=== PATIENT | male | born 1940 | race Caucasian/White ===

== ENCOUNTER 2020-12-11 15:59 | Inpatient (IN) | payer BC, MEDICARE ==
[~2020-12-11] VITALS: Ht 172.7 cm; Wt 78.9 kg
[~2020-12-11 15:59] MED LIST: TAMS-11 PO
[2020-12-11] MEDS ORDERED: SODIUM CHLORIDE 0.9% 1,000 ML IV ONE (17:00)
[2020-12-11 17:12] LABS: HEMATOCRIT. 39.5 % (42.0-52.0); HEMOGLOBIN. 13.6 g/dL (14.0-18.0); MEAN CORPUSCULAR HEMOGLOBIN 29.7 pg (28.0-32.0); MEAN CORPUSCULAR VOLUME 86.2 fL (80.0-94.0); MEAN PLATELET VOLUME 7.8 fl (7.4-10.4); PLATELET 171 x1000/uL (130-400); RED BLOOD CELL COUNT 4.58 mill/uL (4.7-6.1); RED CELL DISTRIBUTION WIDTH 13.4 % (11.6-14.6)
[2020-12-11 17:18] LABS: CHLORIDE 102 mEq/L (98-107)
[2020-12-11 17:22] LABS: INR 1.1
[2020-12-11 17:37] LABS: PLATELET ESTIMATE NORMAL
[2020-12-11] MEDS ORDERED: ASPIRIN 325MG EC TABLET PO NR (18:00)
[2020-12-11] MEDS ORDERED: SODIUM CHLORIDE 0.9% 1000ML BAG (SEPSIS BOLUS) IV ONE (18:00)
[2020-12-11] MEDS ORDERED: POTASSIUM CHLORIDE 20MEQ TABLET SR PO NR (18:00)
[2020-12-11] MEDS ORDERED: KCL 10MEQ/50ML PREMIX 50 ML IV NR (18:00)
[2020-12-11] MEDS ORDERED: VANCOMYCIN 1 G PREMIX 200 ML IV NR (18:00)
[2020-12-11] MEDS ORDERED: PIPERACILLIN/TAZ 3.375G PREMIX 50 ML IV ONE (18:00)
[2020-12-11] MEDS ORDERED: SODIUM CHLORIDE 0.9% IV SCH (18:15)
[2020-12-11] MEDS ORDERED: PIPERACILLIN/TAZ 3.375G PREMIX 50 ML IV NR (18:15)
[2020-12-11] MEDS ORDERED: HEPARIN 25,000 UNITS PREMIX 250 ML IV ONE (18:30)
[2020-12-11] MEDS ORDERED: MAGNESIUM 1 G PREMIX 100 ML IV NR (18:30)
[2020-12-11] MEDS ORDERED: HEPARIN 5000 UNITS/ML VIAL IV PRN ×2 (19:00)
[2020-12-11] MEDS ORDERED: HEPARIN 5000 UNITS/ML VIAL IV SCH ×2 (19:00→19:30)
[2020-12-11] MEDS ORDERED: HEPARIN 25,000 UNITS PREMIX 250 ML IV PRN (19:00)
[2020-12-11 20:16] LABS: CLARITY URINE CLEAR (CLEAR); COLOR URINE YELLOW (YELLOW); KETONES URINE NEGATIVE (NEGATIVE); LEUKOCYTE ESTERASE URINE TRACE (NEGATIVE); NITRITE URINE POSITIVE (NEGATIVE); OCCULT BLOOD URINE 1+ (NEGATIVE); PH URINE 6.5 (4.5-8.0); PROTEIN URINE NEGATIVE (NEGATIVE); SPECIFIC GRAVITY URINE 1.008 (1.005-1.030); UROBILINOGEN URINE 0.2 E.U./dL (0.2-1.0)
[2020-12-11 22:56] VITALS: BP 117/57
[2020-12-12] VITALS (14 sets, daily range): BP systolic 85–134; BP diastolic 44–73
[2020-12-12] MEDS ORDERED: HYDROCODONE/ACETAMINOPHEN 5/325MG TABLET PO PRN
[2020-12-12] MEDS: TAMSULOSIN HCL 0.4MG SR CAPSULE PO SCH ×2 (00:02→20:19)
[2020-12-12] MEDS ORDERED: PNEUMOCOCCAL 23-VAL P-SAC VAC 0.5 ML IM ONE (08:15)
[2020-12-12] MEDS ORDERED: INFLUENZA VACCINE 05/PF 0.5 ML SYRINGE IM ONE (08:15)
[2020-12-12] MEDS: ENOXAPARIN 40MG/0.4ML SYR SUBCUT SCH (08:52)
[2020-12-12] MEDS: ASPIRIN 81MG TABLET PO SCH (08:52)
[2020-12-12] MEDS ORDERED: ISOSORBIDE MONONITRATE 30MG TABLET SR 24HR PO SCH (09:00)
[2020-12-12] MEDS ORDERED: METOPROLOL TARTRATE 25MG TABLET PO SCH (09:00)
[2020-12-12 09:14] LABS: HEMATOCRIT. 36.8 % (42.0-52.0); HEMOGLOBIN. 12.5 g/dL (14.0-18.0); MEAN CORPUSCULAR HEMOGLOBIN 29.4 pg (28.0-32.0); MEAN CORPUSCULAR VOLUME 86.5 fL (80.0-94.0); MEAN PLATELET VOLUME 8.1 fl (7.4-10.4); PLATELET 171 x1000/uL (130-400); RED BLOOD CELL COUNT 4.26 mill/uL (4.7-6.1)
[2020-12-12] MEDS ORDERED: CEFTRIAXONE 1 G PREMIX 50 ML IV SCH (10:00)
[2020-12-12] MEDS ORDERED: POTASSIUM CHLORIDE 20MEQ TABLET SR PO NR (10:00)
[2020-12-12 11:37] LABS: PLATELET ESTIMATE NORMAL
[2020-12-12] MEDS ORDERED: SODIUM CHLORIDE 0.9% 250 ML IV NR (12:00)
[2020-12-12] MEDS ORDERED: MAGNESIUM 2 G PREMIX 50 ML IV NR (12:00)
[2020-12-12] MEDS: CEFTRIAXONE 1,000 MG in DEXTROSE 5% WATER 50 ML IV SCH (12:22)
[2020-12-12] MEDS ORDERED: ASPI-1497 MT (18:23)
[2020-12-12] MEDS ORDERED: CHLO25TA2 PO (18:23)
[2020-12-12] MEDS ORDERED: AMLO10TA80 MT (18:23)
[2020-12-12] MEDS ORDERED: ATOR-2 MT (18:23)
[2020-12-12] MEDS ORDERED: FINASTERIDE 5MG TABLET PO SCH (21:00)
[2020-12-12] MEDS ORDERED: TAMSULOSIN HCL 0.4MG SR CAPSULE PO SCH (21:00)
[2020-12-13] VITALS (9 sets, daily range): BP systolic 83–127; BP diastolic 47–78
[2020-12-13 08:12] LABS: BASOPHILS % 0.5 % (0.0-2.0); CHLORIDE 107 mEq/L (98-107); EOSINOPHILS % 1.2 % (0.0-5.0); HEMATOCRIT. 36.9 % (42.0-52.0); HEMOGLOBIN. 12.5 g/dL (14.0-18.0); LYMPHOCYTES % 8.9 % (20.0-50.0); MEAN CORPUSCULAR HEMOGLOBIN 29.4 pg (28.0-32.0); MEAN CORPUSCULAR VOLUME 86.9 fL (80.0-94.0); MEAN PLATELET VOLUME 8.4 fl (7.4-10.4); MONOCYTES % 4.9 % (2.0-8.0); NEUTROPHILS % 84.5 % (40.0-76.0); PLATELET 161 x1000/uL (130-400); RED BLOOD CELL COUNT 4.24 mill/uL (4.7-6.1); RED CELL DISTRIBUTION WIDTH 13.9 % (11.6-14.6)
[2020-12-13] MEDS: ENOXAPARIN 40MG/0.4ML SYR SUBCUT SCH (09:11)
[2020-12-13] MEDS: ASPIRIN 81MG TABLET PO SCH (09:11)
[2020-12-13] MEDS: CEFTRIAXONE 1,000 MG in DEXTROSE 5% WATER 50 ML IV SCH (12:23)
[2020-12-13] MEDS ORDERED: LEVO500T89 MT (12:34)
[2020-12-13] MEDS ORDERED: FINA5TAB3 MT (12:34)
== END 2020-12-13 15:20 | disposition home or self-care (01) | DRG 871 ==
LOC: ER 15:59 → 5EST 19:38 → EDBEDREQ 19:56 → EDBEDREQTM 19:56 → CANRESERV 20:34 → ENRESERV 20:34
PROVIDERS: ADMIT Internal Medicine; ATTEND Internal Medicine
DX: A41.9 Sepsis, unspecified organism (principal); I21.A1 Myocardial infarction type 2; E44.1 Mild protein-calorie malnutrition; N17.9 Acute kidney failure, unspecified; E87.2 Acidosis; N39.0 Urinary tract infection, site not specified; I10 Essential (primary) hypertension; E87.6 Hypokalemia; E83.42 Hypomagnesemia; N40.1 Benign prostatic hyperplasia with lower urinary tract symptoms; R33.8 Other retention of urine; Z20.822 Contact with and (suspected) exposure to COVID-19; Z79.899 Other long term (current) drug therapy; Z79.82 Long term (current) use of aspirin; N28.89 Other specified disorders of kidney and ureter; Z68.26 Body mass index [BMI] 26.0-26.9, adult
CPT/HCPCS: 36415; 71045; 80048; 80053; 80061; 81003; 83605; 83735; 84145; 84484; 85025; 87426; 90686; 90732; 93005; 93306; 99291; J0696; J1644; J1650; J2543; J3370; J3475; J3480; J7030; J7060; A4315

== ENCOUNTER 2021-02-25 11:51 | Emergency (ER) | payer BC ==
[~2021-02-25] VITALS: Ht 170.2 cm; Wt 80.0 kg
[~2021-02-25 11:51] MED LIST changes: +AMLO10TA80 MT; +ASPI-1497 MT; +ATOR-2 MT; +CHLO25TA2 PO; +FINA5TAB3 MT; +LEVO500T89 MT
[2021-02-25 12:12] VITALS: BP 100/53
== END 2021-02-25 18:14 | disposition left against medical advice (07) ==
LOC: ER 11:51
DX: Z13.9 Encounter for screening, unspecified (principal)